=== PATIENT | male | born 1970 | race Caucasian/White ===

== ENCOUNTER 2021-04-14 00:36 | Day surgery (SDC) | payer OTHER, SELFPAY ==
[2021-03-31 15:02] VITALS: BMI 31.6
[2021-04-14 08:33] VITALS: BP 132/90; PULSE 75; RESP 18; TEMP 36.4; O2SAT 99
[2021-04-14] MEDS: LACTATED RINGERS 1,000 ML 150 ML IV CONT (08:46)
--- NOTE | 2021-04-14 08:50 | PM.HPGS ---
History of Present Illness History of Present Illness Consent: Risks, benefits, and alternatives have been discussed and questions answered. Patient agrees to proceed with procedure. Chief complaint: neoplasm screening Narrative: Mehul Woods is a 51 year old male here for first screening colonoscopy Review of Systems Constitutional: Constitutional: Denies headache(s) and Denies weakness Eyes: Eyes: Denies blurry vision ENT: Reports Normal hearing present, Denies headache(s) and Denies neck pain Cardiovascular: Cardiovascular: Denies chest pain and Denies dyspnea Respiratory: Respiratory: Denies dyspnea Gastrointestinal: Gastrointestinal: Reports no additional gastrointestinal complaints Genitourinary: Genitourinary: Denies dysuria Musculoskeletal: Musculoskeletal: Denies neck pain Integumentary/Breasts: Skin/Breast: Denies dry skin Neurologic: Reports Normal hearing present, Denies headache(s) and Denies weakness Psychiatric: Psychiatric: Denies anxiety Endocrine: Endocrine: Denies change in body appearance Hematologic/Lymphatic: Hematologic/Lymphatic: Denies easy bleeding Allergic/Immunologic: Allergic/Immunologic: Denies urticaria PMF Past Medical History Medical History (Updated 04/14/21 @ 08:50 by Micheal Crocker MD) Colon cancer screening Social History Social History Substance use type: does not use Meds Home Medications and Allergies Home Medications Medication Instructions Recorded Confirmed Type No Home Medications 04/14/21 04/14/21 History Allergies Allergy/AdvReac Type Severity Reaction Status Date / Time shellfish derived Allergy Hives Verified 04/14/21 08:35 Vital Signs Vital Signs - 24 hr 04/14/21 08:33 Temperature 97.6 F Pulse Rate 75 Respiratory Rate 18 Blood Pressure 132/90 Pulse Oximetry 99 Exam Const: General: comfortable and no acute distress HENMT: General nose exam: Normal nares present Eyes: General: appearance normal, both eyes and all related structures Neck: Neck: no JVD Resp: Auscultation: clear to auscultation bilaterally Cardio: Rate: regular rate Rhythm: regular rhythm GI: Inspection: non-distended GI Palp: Yes Soft to palpation Skin: General skin exam: normal color Neuro: General: gait normal Speech: normal speech Extrem: General: normal to inspection Psych: Mental Status: mental status grossly normal Assessment and Plan Assessment and plan (1) Colon cancer screening: Code(s): Z12.11 - Encounter for screening for malignant neoplasm of colon Status: Acute Assessment and Plan: colonoscopy
--- NOTE | 2021-04-14 08:51 | P.PNAN_ITS ---
Anes - Initial Pre Proc Eval Procedure: Operation Date: 04/14/21 09:30 Proposed Procedures p Screening Colonoscopy - Micheal Crocker MD Date/Time: 04/14/21 08:51 Surgeon: Micheal Crocker MD Pre Op Diagnosis: neoplasm screening Patient Data Age: 51 Gender: M Height: 1.78 m Weight: 102.6 kg Last Vital Signs Temp 36.4 C 04/14/21 08:33 Pulse 75 04/14/21 08:33 Resp 18 04/14/21 08:33 BP 132/90 04/14/21 08:33 Pulse Ox 99 04/14/21 08:33 Allergies Allergy/AdvReac Type Severity Reaction Status Date / Time shellfish derived Allergy Hives Verified 04/14/21 08:35 Home Medications Medication Instructions Recorded Confirmed Type No Home Medications 04/14/21 04/14/21 History Patient hx anesthesia problems: none Family hx anesthesia problems: none Results Review: All pre-operative results and documents have been reviewed as part of the pre-operative evaluation. [facility] Past Medical History Medical History (Updated 04/14/21 @ 08:51 by Maximus Bryant MD) Colon cancer screening Obesity Social History Social History Substance use type: does not use Anes - Eval Final PreProcedure Day of Procedure 04/14/21 08:51 Patient weight: obese Heart: regular rate and rhythm Lungs: clear to auscultation Airway: Mallampati scale class II Neurological: alert and oriented Last oral intake: >/= 8 hours ASA classification: II Emergent: no Anesthetic plan: proceed Anesthesia type and monitoring: general GIVS and standard monitoring Results Review: All pre-operative results and documents have been reviewed as part of the pre-operative evaluation. Informed Consent: The patient's anesthetic plan and its attendant risks and benefits were discussed with the patient/family/POA. Questions were solicited and answers provided to the satisfaction of the patient/family/POA.
[2021-04-14 09:09] VITALS: BP 117/87; PULSE 75; RESP 23; O2SAT 98
[2021-04-14 09:19] VITALS: BP 139/90; PULSE 72; RESP 23; O2SAT 97
[2021-04-14 09:29] VITALS: BP 131/92; PULSE 65; RESP 17; O2SAT 99
== END 2021-04-14 09:32 | disposition home or self-care (01) ==
PROVIDERS: PCP Nurse Practitioner Adult Health; Visit Provider Internal Medicine Gastroenterology
PROC: 0DJD8ZZ Inspection of Lower Intestinal Tract, Via Natural or Artificial Opening Endoscopic (ICD-10-PCS; CPT 45378; principal; 2021-04-14 09:30)
DX: Z12.11 Encounter for screening for malignant neoplasm of colon (principal); D12.2 Benign neoplasm of ascending colon; E66.9 Obesity, unspecified; Z68.32 Body mass index [BMI] 32.0-32.9, adult
CPT/HCPCS: 45385; 88305; J2001; J2704; J7120

== ENCOUNTER 2023-04-01 19:05 | Emergency (ER) | payer OTHER, SELFPAY ==
[2023-04-01] VITALS (13 sets, daily range): BP systolic 122–145; BP diastolic 70–95; PULSE 64–98; RESP 12–19; TEMP 36.4–36.6; O2SAT 95–100
--- NOTE | ~2023-04-01 | CT_ITS ---
EXAMINATION: CT brain wo con DATE: 04/01/2023 20:44 INDICATION: Vertigo TECHNIQUE: Computed tomography (CT) of the head was performed without intravenous contrast. Sagittal and coronal reconstructions were performed. The mA was adjusted according to patient size. Iterative reconstruction technique was employed. The dose-length product was 681.00 mGy-cm. COMPARISON: None FINDINGS: No acute intracranial hemorrhage, acute infarction or abnormal extra axial fluid collection. Symmetr ic prominence of the sulci and subarachnoid spaces overlying the convexities consistent with mild age -appropriate diffuse cerebral volume loss. Ventricles are normal and symmetric. No mass/mass effect. The orbits, paranasal sinuses and mastoid air cells are normal. IMPRESSION: 1. Normal aging brain. No acute intracranial process. Reviewed, dictated and finalized at location A. [employer]ACHINE [employer]PER[employer]
[2023-04-01 19:31] LABS: Basophils Percent Auto 0.3 % (0.2-1.2); Eosinophils Absolute Auto 0.1 K/mm3 (0-0.3); Eosinophils Percent Auto 0.3 % (0-4.4); Hematocrit 50.3 % (42.0-52.0); Immature Granulocyte Absolute 0.05 K/mm3 (0.00-0.031); Immature Granulocyte Percent A 0.3 % (0-0.5); Lymphocytes Absolute Auto 1.93 K/mm3 (0.9-3.2); Lymphocytes Percent Auto 12.1 % (18.3-44.2); Mean Corpuscular HGB Conc 33.8 g/dl (32-36); Mean Corpuscular Hemoglobin 28.8 pg (26-34); Mean Corpuscular Volume 85.1 fl (80-100); Mean Platelet Volume 11.5 fl (7.4-10.4); Monocytes Absolute Auto 0.9 K/mm3 (0.1-0.6); Monocytes Percent Auto 5.5 % (2.6-8.5); Neutrophils Percent Auto 81.5 % (45.5-73.1); Platelet Count Result 233 k/mm3 (150-375); Red Blood Count 5.91 M/mm3 (4.6-6.20); Red Cell Distribution Width 12.4 % (11.5-14.5)
[2023-04-01 19:35] LABS: Add Urine Microscopic? YES; Appearance Urine Clear (Clear); Bacteria Urine None Seen /hpf; Bilirubin Urine Negative (Negative); Blood Urine Negative (Negative); Color Urine Dark Yellow (Yellow); Glucose Urine UA Negative (Negative); Ketones Urine 4+ mg/dL (Negative); Leukocyte Esterase Ur Negative LEU/UL (Negative); Nitrate Urine Negative (Negative); Non Pathogenic Casts 0-2; Protein Urine Trace mg/dL (Negative); RBC Urine 0-2 /hpf (0-2); Specific Grav Ur 1.031 (1.001-1.035); Squamous Epithelial Cell Urine None seen /hpf (Few); WBC Urine 0-5 /hpf; pH Urine 5.5 (5.0-9.0)
--- NOTE | 2023-04-01 19:39 | ECG_ITS ---
Measurements Intervals [place] Rate: 71 P: 37 WI: 172 QRS: 1 QRSD: 86 T: 15 QT: 395 QTc: 429 Interpretive Statements SINUS RHYTHM NONSPECIFIC T-WAVE ABNORMALITY BORDERLINE ECG NO PREVIOUS ECG AVAILABLE FOR COMPARISON Electronically Signed On 04-02-2023 7:09:34 [employer] by Eric Zhao M.D.
[2023-04-01 19:51] LABS: Alanine Aminotransferase 24 U/L (6-50); Albumin Level 4.8 g/dL (3.5-5.1); Alkaline Phosphatase 103 U/L (38-126); Anion Gap 17 mmol/L (8-16); Aspartate Amino Transferase 22 U/L (17-59); Bilirubin,Total 1.4 mg/dL (0.2-1.3); Blood Urea Nitrogen 18 mg/dL (9-20); Calcium 10.4 mg/dL (8.4-10.2); Carbon Dioxide 20 mmol/L (22-30); Chloride 101 mmol/L (98-107); Estimated CRCL calculation 110 ml/min; Estimated Glomerular Filt Rate > 60; Glucose 120 mg/dL (65-110); Lipase 74 U/L (23-300); Potassium 3.9 mmol/L (3.4-5.0); Sodium 138 mmol/L (137-145)
--- NOTE | 2023-04-01 19:53 | ED.GENADULT ---
[facility] - General Adult General Chief complaint: Unspecified Stated complaint: MULTIPLE C/O Time Seen by Provider: 04/01/23 19:40 Source: patient Mode of arrival: ambulatory Limitations: no limitations History of Present Illness HPI narrative: This is a 53-year-old male who presents to the ED with chief complaint of dizziness beginning 4 days ago and has been intermittent ever since. Reports he has been intermittently nauseous and had several episodes of vomiting. Patient states that the dizziness worsens whenever he gets up and walks or moves his head around. His p.o. intake has been quite decreased due to feeling ill. He went to urgent care today to who referred him here for further evaluation. He will Urgent Care that he had some bilateral tingling in his upper and lower extremities as well as the jaw. He states these things have resolved. He denies chest pain, shortness of breath, cough, fevers, chills, neck pain, headache. No head injury, vision change speech change. Related Data Allergies Allergy/AdvReac Type Severity Reaction Status Date / Time shellfish derived Allergy Hives Verified 04/14/21 08:35 Review of Systems Review of Systems: All systems as dictated in [facility] Past Medical History Medical History (Updated 04/02/23 @ 00:00 by Edenilson Rosa) Colon cancer screening Obesity Social History Social History Substance use type: does not use Exam Narrative: GENERAL: Well-appearing, well-nourished, and in no acute distress. Appears dry on exam. HEAD: Normocephalic, atraumatic. Reproducible dizziness with rotating the head to the right. EYES: PERRLA and EOMI. ENT: Nares clear, no rhinorrhea or epistaxis. Mucous membranes moist. Oropharynx without tonsillar hypertrophy exudate or other lesions. NECK: Supple. No adenopathy or masses. CHEST: No respiratory distress. Clear to auscultation. No wheezes rales or rhonchi HEART: Regular rate and rhythm. No murmur heard. Normal peripheral pulses. ABDOMEN: Soft, nontender, nondistended, normal active bowel sounds. MSK: Normal range of motion. No edema. SKIN: Warm, dry, no rash. NEURO: Alert and oriented x3. No focal deficits. 5/5 strength and sensation in the upper and lower extremities. Coordination intact. Normal heel-alvarez. Negative pronator drift. HINTS: Head impulse shows corrective saccade when rotated to the right Mild horizontal nystagmus. No skew deviation. PSYCH: Normal mood and affect. Course Course Emergency Course: Patient did very well after Reglan, Benadryl and fluids. He was able ambulate without difficulty. He feels much better and ready to go home. Vital Signs Vital signs: Vital Signs Temperature 97.9 F 04/01/23 19:22 Pulse Rate 91 04/01/23 19:22 Respiratory Rate 15 04/01/23 19:22 Blood Pressure 132/94 H 04/01/23 19:22 Pulse Oximetry 100 04/01/23 19:22 Oxygen Delivery Room Air 04/01/23 19:22 Temperature 97.5 F L 04/01/23 23:48 Pulse Rate 85 04/01/23 23:48 Respiratory Rate 16 04/01/23 23:48 Blood Pressure 126/70 04/01/23 23:48 Pulse Oximetry 99 04/01/23 23:48 Oxygen Delivery Room Air 04/01/23 19:22 Medical Decision Making MDM Narrative Medical decision making narrative: This is a 53-year-old male who presents to the ED with chief complaint of 4 days of intermittent vertigo symptoms. Vitals are normal. Exam shows no focal neural deficit. HINTS exam performed and is indicative of peripheral cause of vertigo at this time. Physical exam is fully intact. EKG shows normal sinus rhythm. Lab work shows white count of 16.0. Suspect acute phase reactant with vomiting. CMP shows evidence of dehydration with very slightly low bicarb and increased anion gap at 17. When corrected for albumin, he has a normal anion gap. Urinalysis remarkable for 4+ ketones. I do believe that he is ketotic with decreased p.o. intake. He wa
[2023-04-01] MEDS: SODIUM CHLORIDE 0.9% IV 1,000 ML 999 ML IV CONT ×2 (20:03→20:49)
[2023-04-01] MEDS: METOCLOPRAMIDE HCL INJ 10 MG/2 ML VIAL IV PUSH (20:04)
[2023-04-01] MEDS: diphenhydrAMINE HCl INJ 50 MG/ML VIAL 25 MG IV PUSH (20:04)
[2023-04-01 20:24] LABS: Influenza A QL RT-PCR Negative (Negative); Influenza B QL RT-PCR Negative (Negative); RSV RNA, RT-PCR Negative (Negative); SARS-CoV-2 RNA PCR Negative (Negative)
== END 2023-04-01 23:49 | disposition home or self-care (01) ==
PROVIDERS: Emergency Medicine; Emergency Provider Physician Assistant; PCP Nurse Practitioner Adult Health
DX: H81.399 Other peripheral vertigo, unspecified ear (principal); E66.9 Obesity, unspecified; Z68.30 Body mass index [BMI] 30.0-30.9, adult; R94.31 Abnormal electrocardiogram [ECG] [EKG]
CPT/HCPCS: 36415; 70450; 80053; 81001; 83690; 85025; 87637; 93005; 96361; 96374; 96375; 99284; J1200; J2765; J7030